=== PATIENT | female | born 1960 | race Caucasian/White ===

== ENCOUNTER 2022-11-19 01:14 | Day surgery (SDC) | payer BC, SELFPAY ==
[2022-11-09 17:00] VITALS: BMI 34.0
--- NOTE | 2022-11-09 17:33 | PC.NURSE ---
Report to the Outpatient Waiting Room, entrance under the green pavilion located off [facility], at time 0600 on date 11/19/22. Planned Procedure Time: 0730_. Time changes happen often and if your time is changed the preop area will call you the afternoon before. - You and your visitor will be asked to self-screen and do not enter if you have any COVID symptoms. - Only one visitor is requested with a max of two and NO children visitors are allowed at this time. - The patient visitor may be requested to leave or wait in car when not with patient due to distancing restrictions. - A mask is optional within the hospital at this time. Patients may have clear liquids (water, carbonated beverages, clear teas, apple juice) until 3 hours prior to surgery with a maximum of 20 ounces. - No food from midnight until time of surgery - Infants may have breast milk until 4 hours before surgery, formula 6 hours prior to surgery. - Children will be allowed to drink immediately following surgery. If applicable, please bring a bottle or sippy cup to assist with drinking. Juice, water, soda, and popsicles are readily available. For infants on formula, please bring formula the day of surgery. Pacifiers are allowed. Take the following medications with a SIP of water the morning of surgery: _inhaler, buspirone, duloxetine_ DO NOT STOP ANY OF YOUR OTHER PRESCRIPTION MEDICATIONS PRIOR TO SURGERY ?EXCEPT THE FOLLOWING Medications to discontinue per physician __multivitamin Date to take last dose_11/16/22_ Please no make-up, nail sw[place], hairspray, perfume, deodorant, or body powder the day of surgery. No jewelry (including any body piercings) or valuables the day of surgery, leave them at home. Please take a shower or bath the night before, or the morning of, surgery with an antibacterial soap. Wear comfortable, loose fitting clothing. Children are encouraged to wear pajamas. - Jewelry must be removed prior to entering the operating room. Rings and piercings that are not removed may be cut off. - The hospital will not accept responsibility for valuables. - Please leave all valuables, including medications, at home the day of surgery. If you are going home after surgery, a licensed sprinkler driver must drive you home. - NO public transportation without another adult if you receive anesthesia. - We recommend that an adult stay with you for 24 hours following discharge. - We also recommend that you do not drive, make important decision, drink alcoholic beverages, or take any drugs that were not prescribed by your health care provider for at least 24 hours after your discharge time. For Pediatric surgeries, we recommend two adults accompany the child home. Follow any additional instructions given to you from your surgeon. If you or anyone in your household have experienced Covid symptoms in the past week, please notify your surgeon or the nurse liaison at the phone number below for possible testing. Telephone instructions given to Veronique Mead and asked if any additional questions and then verbalized understanding. Patient advised to call surgeon office or pre surgery nurse liaison [phone] if any additional questions.
--- NOTE | 2022-11-18 09:33 | PM.IMHP ---
H&P: HPI History of Present Illness Date/Time: 11/18/22 09:33 Chief Complaint: Stress incontinence Narrative: 62-year-old with mixed incontinence. Stress incontinence predominant. She is on medications for overactive bladder. She is here today for treatment of stress incontinence Review of Systems Review of Systems: All systems reviewed & are unremarkable except as noted in HPI and below PMFSH Social History Social History Smoking packs per day: 0.5 Smoking cigarettes per day: 10.0 Years smoked: 47 Smoking pack-years: 23.50 Smoking status: Current some day smoker Tobacco type: cigarettes Alcohol intake: never Substance use: never Living arrangements: with family Spiritual care concerns: No Meds Home Medications and Allergies Home Medications Medication Instructions Recorded Confirmed Type atorvastatin 80 mg tablet 80 mg PO DAILY 11/09/22 11/09/22 History buspirone 30 mg tablet 30 mg PO DAILY 11/09/22 11/09/22 History cilostazol 100 mg tablet 100 mg PO DAILY 11/09/22 11/09/22 History docusate sodium 100 mg capsule 100 mg PO DAILY 11/09/22 11/09/22 History duloxetine 60 mg capsule,delayed 60 mg PO DAILY 11/09/22 11/09/22 History release methocarbamol 750 mg tablet 750 mg PO DAILY 11/09/22 11/09/22 History multivit with minerals-iron 18 1 tablet PO DAILY 11/09/22 11/09/22 History mg-folic ac 400 mcg-vit K 25 mcg tablet (Adults Multivitamin) pregabalin 150 mg capsule 150 mg PO DAILY 11/09/22 11/09/22 History umeclidinium 62.5 mcg-vilanterol 62.5 inh inhalation DAILY 11/09/22 11/09/22 History 25 mcg/actuation powdr for inhalation (Anoro Ellipta) Allergies Allergy/AdvReac Type Severity Reaction Status Date / Time Penicillins Allergy Unknown rash Unverified 10/20/14 16:50 NSAIDS (Non-Steroidal AdvReac Severe bleeding Verified 11/09/22 17:22 Anti-Inflamma ulcer Exam Narrative: urethral hypermobility noted Assessment and Plan Assessment and plan (1) [place] (stress urinary incontinence, female): Code(s): N39.3 - Stress incontinence (female) (male) Status: Acute Assessment and Plan: urethral sling. Understands risks of bleeding, infection, lack of efficacy, urinary retention requiring secondary procedure, hip and leg pain, mesh exposure. Agrees to proceed
[2022-11-19] MEDS: LACTATED RINGERS 1,000 ML 30 ML IV CONT ×2 (06:30→08:00)
[2022-11-19 07:07] LABS: Appearance Urine Clear (Clear); Bilirubin Urine Negative (Negative); Blood Urine Trace-lysed (Negative); Color Urine Yellow (Yellow); Glucose Urine UA Negative (Negative); Ketones Urine Negative (Negative); Leukocyte Esterase Ur Negative LEU/UL (Negative); Nitrate Urine Negative (Negative); Protein Urine Negative (Negative); Specific Grav Ur 1.025 (1.001-1.035); Urobilinogen Urine 0.2 mg/dL (<2.0); pH Urine 6.5 (5.0-9.0)
--- NOTE | 2022-11-19 07:12 | WPDHPUPDATE1 ---
History and Physical Update Update Date/Time: 11/19/22 07:12 History and Physical has been reviewed, including an updated exam of the patient. There are NO changes in the patient's condition. Risks, benefits, and alternatives have been discussed and questions answered. Patient agrees to proceed with procedure.
[2022-11-19 07:17] LABS: Squamous Epithelial Cell Urine Few /hpf (Few); WBC Urine 0-3 /hpf
[2022-11-19 07:23] LABS: Add Urine Microscopic? YES
[2022-11-19 07:40] VITALS: BP 143/87; PULSE 101; RESP 14; TEMP 37.3; O2SAT 94
--- NOTE | 2022-11-19 08:17 | P.PNAN_ITS ---
Anes - Eval Final PreProcedure Day of Procedure 11/19/22 08:17 Patient weight: obese Heart: regular rate and rhythm Lungs: clear to auscultation Airway: Mallampati scale class III Neurological: alert and oriented Last oral intake: >/= 8 hours ASA classification: III Emergent: no Anesthetic plan: proceed Anesthesia type and monitoring: general GIVS and standard monitoring Results Review: All pre-operative results and documents have been reviewed as part of the pre- operative evaluation. Informed Consent: The patient's anesthetic plan and its attendant risks and benefits were discussed with the patient/family/POA. Questions were solicited and answers provided to the satisfaction of the patient/family/POA.
[2022-11-19] MEDS: ceFAZolin 2 GM/D5W 50 ML 2 GM/50 ML BAG IVPB (08:20)
[2022-11-19] MEDS: BUPIVACAINE/EPINEPHRINE 0.5% 10 ML VIAL 30 ML INFILTRATE (08:33)
--- NOTE | 2022-11-19 08:49 | W.PM.PROC2 ---
Procedure Note - Detailed Date of Procedure 11/19/22 Pre-op Diagnosis stress incontinence Post-op Diagnosis Same Procedure Performed mid urethral sling cystoscopy Surgeon Bryce Ross MD Anesthesia MAC Indications This is a female with confirm stress urinary incontinence. She desires surgical correction. She understands the risks of bleeding, infection, injury to the urinary tract, vaginal mesh extrusion, urinary tract mesh erosion, obstructive voiding requiring a secondary procedure, hip and leg pain, dyspareunia, inability to improve overactive bladder symptoms. She agrees to proceed. Description of Procedure She was correctly identified. Informed consent obtained. She was brought the operating room. She was given appropriate anesthesia. She was given appropriate perioperative antibiotics. A time-out performed. I marked out the site of the inner thigh incisions. I anesthetized the skin and made those incisions. I anesthetized the anterior vaginal wall over the mid urethra. I made a 1 cm incision. I dissected out laterally taking great care not to injure the refilled vaginal wall. I passed the helical trocars. First on the left. Then on the right. I did this from the thigh incision towards the vaginal incision. The sling was connected to the trocars and brought out through the thigh incision. I tensioned the sling appropriately. I cut and the plastic sheaths. I then closed the incision with 2 0 Vicryl. On cystoscopy there is no tumors or surgical artifact. There was no surgical artifact in the urethra. I cut the excess sling material. Close incisions with glue. She was awakened and transferred to the PACU in stable condition. Implants Urethral sling Estimated Blood Loss 20 Drains No Packing No Pathology None sent Complications No immediate complications Condition Stable Disposition PACU
[2022-11-19 08:55] VITALS: BP 128/77; PULSE 98; RESP 16; O2SAT 98
[2022-11-19 09:25] VITALS: BP 138/89; PULSE 85; RESP 16; O2SAT 98
== END 2022-11-19 09:50 | disposition home or self-care (01) ==
PROVIDERS: PCP Nurse Practitioner Family; Visit Provider Urology
PROC: (CPT 57288; principal; 2022-11-19 07:30)
DX: N39.3 Stress incontinence (female) (male) (principal); E66.9 Obesity, unspecified; Z68.33 Body mass index [BMI] 33.0-33.9, adult; N32.81 Overactive bladder; F17.210 Nicotine dependence, cigarettes, uncomplicated; Z79.51 Long term (current) use of inhaled steroids
CPT/HCPCS: 57288; 81001; C1771; J0690; J2250; J2704; J3010; J7030; J7120

== ENCOUNTER 2025-04-05 00:39 | Day surgery (SDC) | payer BC, SELFPAY ==
[2025-04-02 12:39] VITALS: BMI 33.7
--- NOTE | 2025-04-02 12:49 | PC.NURSE ---
Report to the Outpatient Waiting Room, entrance under the green pavilion located off [facility], at time _1000_ on date _[id number]_. Planned Procedure Time: _1200_.? Time changes happen often and if your time is changed the preop area will call you the afternoon before. - You and your visitor will be asked to self-screen and do not enter if you have any COVID symptoms. Please call surgeon if you need to reschedule. - A mask is optional within the hospital at this time. Patients may have clear liquids (water, carbonated beverages, clear teas, apple juice) until 3 hours prior to surgery with a maximum of 20 ounces. - No food from midnight until time of surgery and no smoking, or chewing tobacco (or any form of nicotine). No chewing gum, candy or mints. Take only the following medications with a SIP of water on the morning of surgery: ___Duloxetine, Buspirone, Pregabalin and Anoro ellipta___ DO NOT STOP ANY OF YOUR OTHER PRESCRIPTION MEDICATIONS PRIOR TO SURGERY EXCEPT THE FOLLOWING Hold all vitamins and supplements for 3 days per anesthesiologist. Medications to discontinue per physician ___Patient per office intructions took last dose of Cilostazol and Aspirin [id number] Date to take last dose____ Please no make-up, nail citizen [place], hairspray, perfume, deodorant, or body powder the day of surgery.? No jewelry (including any body piercings) or valuables the day of surgery, leave them at home.? Please take a shower or bath the night before, or the morning of, surgery with an antibacterial soap.? Wear comfortable, loose fitting clothing.? - Jewelry must be removed prior to entering the operating room.? Rings and piercings that are not removed may be cut off. - The hospital will not accept responsibility for valuables.? - Please leave all valuables, including medications, at home the day of surgery. If you are going home after surgery, a licensed tank driver must drive you home.? - NO public transportation without another adult if you receive anesthesia. - We recommend that an adult stay with you for 24 hours following discharge. - We also recommend that you do not drive, make important decision, drink alcoholic beverages, or take any drugs that were not prescribed by your health care provider for at least 24 hours after your discharge time. Follow any additional instructions given to you from your surgeon. Telephone instructions given to __Terri__and asked if any additional questions and then verbalized understanding. Patient advised to call surgeon office or pre surgery nurse liaison [phone] if any additional questions.
--- NOTE | 2025-04-04 15:26 | WPDANESEPPF ---
Anes - Initial Pre Proc Eval Procedure: Operation Date: 04/05/25 12:00 Proposed Procedures p Neurostimulator Implant Phase Two - Bryce Ross MD Date/Time: 04/04/25 15:26 Surgeon: Bryce Ross MD Pre Op Diagnosis: rajesh becerril Patient Data Age: 64 Gender: F Height: 1.6 m Weight: 86.4 kg Allergies Allergy/AdvReac Type Severity Reaction Status Date / Time Penicillins Allergy Unknown rash Verified 04/05/25 11:08 NSAIDS (Non-Steroidal AdvReac Severe bleeding Verified 04/05/25 11:08 Anti-Inflamma ulcer Home Medications ?Medication ?Instructions ?Recorded ?Confirmed ?Type atorvastatin 80 mg tablet 80 mg PO DAILY 11/09/22 04/05/25 History buspirone 30 mg tablet 30 mg PO DAILY 11/09/22 04/05/25 History cilostazol 100 mg tablet 100 mg PO DAILY 11/09/22 04/02/25 History docusate sodium 100 mg capsule 100 mg PO DAILY 11/09/22 04/02/25 History duloxetine 60 mg capsule,delayed 60 mg PO DAILY 11/09/22 04/05/25 History release multivit with minerals-iron 18 1 tablet PO DAILY 11/09/22 04/05/25 History mg-folic ac 400 mcg-vit K 25 mcg tablet (Adults Multivitamin) pregabalin 150 mg capsule 150 mg PO DAILY 11/09/22 04/05/25 History umeclidinium 62.5 mcg-vilanterol 62.5 inh inhalation DAILY 11/09/22 04/05/25 History 25 mcg/actuation powdr for inhalation (Anoro Ellipta) amitriptyline 10 mg tablet 10 mg PO HS 04/02/25 04/05/25 History aspirin 81 mg tablet 81 mg PO HS 04/02/25 04/02/25 History Patient hx anesthesia problems: none Family hx anesthesia problems: none Results Review: All pre-operative results and documents have been reviewed as part of the pre-operative evaluation. [facility] Past Medical History Medical History Fibromyalgia On home O2 ANITA (obstructive sleep apnea) COPD (chronic obstructive pulmonary disease) Hyperlipidemia Surgical History Surgical History History of tubal ligation Social History Social History Smoking packs per day: 0.5 Smoking cigarettes per day: 10.0 Years smoked: 45 Smoking pack-years: 22.50 Smoking status: Current every day smoker Tobacco type: cigarettes Alcohol intake: never Substance use: never Living arrangements: with family Gender identity (if verbalized by the patient): Female Sexual Orientation (if Verbalized by the Patient): Straight or Heterosexual Spiritual care concerns: No Anes - Eval Final PreProcedure Day of Procedure 04/04/25 15:26 Patient weight: obese Heart: regular rate and rhythm Lungs: clear to auscultation Airway: Mallampati scale class II Neurological: alert and oriented Last oral intake: >/= 8 hours ASA classification: IV Emergent: no Anesthetic plan: proceed Anesthesia type and monitoring: general GIVS and standard monitoring Results Review: All pre-operative results and documents have been reviewed as part of the pre-operative evaluation. Informed Consent: The patient's anesthetic plan and its attendant risks and benefits were discussed with the patient/family/POA. Questions were solicited and answers provided to the satisfaction of the patient/family/POA.
--- NOTE | ~2025-04-05 | XR_ITS ---
INTRAOPERATIVE FLUOROSCOPY: CLINICAL HISTORY: 64 years old Female; NEUROSTIMULATOR IMPLANT PHASE TWO PROCEDURE COMMENTS: Limited intraoperative fluoroscopy of the lumbar spine was performed. CUMULATIVE DOSE: 34.8 mGy FLUOROSCOPY TIME: 35.7 seconds FINDINGS/IMPRESSION: Please refer to operative note for further details. Reviewed, dictated and finalized at location A.
--- NOTE | 2025-04-05 04:55 | PM.IMHP ---
H&P: HPI History of Present Illness Date/Time: 04/05/25 04:55 Chief Complaint: UUI Narrative: successful trial of SNS Review of Systems Review of Systems: All systems reviewed & are unremarkable except as noted in HPI and below PMFSH Past Medical History Medical History Fibromyalgia On home O2 ANITA (obstructive sleep apnea) COPD (chronic obstructive pulmonary disease) Hyperlipidemia Surgical History Surgical History History of tubal ligation Social History Social History Smoking packs per day: 0.5 Smoking cigarettes per day: 10.0 Years smoked: 45 Smoking pack-years: 22.50 Smoking status: Current every day smoker Tobacco type: cigarettes Alcohol intake: never Substance use: never Living arrangements: with family Gender identity (if verbalized by the patient): Female Sexual Orientation (if Verbalized by the Patient): Straight or Heterosexual Spiritual care concerns: No Meds Home Medications and Allergies Home Medications ?Medication ?Instructions ?Recorded ?Confirmed ?Type atorvastatin 80 mg tablet 80 mg PO DAILY 11/09/22 04/02/25 History buspirone 30 mg tablet 30 mg PO DAILY 11/09/22 04/02/25 History cilostazol 100 mg tablet 100 mg PO DAILY 11/09/22 04/02/25 History docusate sodium 100 mg capsule 100 mg PO DAILY 11/09/22 04/02/25 History duloxetine 60 mg capsule,delayed 60 mg PO DAILY 11/09/22 04/02/25 History release multivit with minerals-iron 18 1 tablet PO DAILY 11/09/22 04/02/25 History mg-folic ac 400 mcg-vit K 25 mcg tablet (Adults Multivitamin) pregabalin 150 mg capsule 150 mg PO DAILY 11/09/22 04/02/25 History umeclidinium 62.5 mcg-vilanterol 62.5 inh inhalation DAILY 11/09/22 04/02/25 History 25 mcg/actuation powdr for inhalation (Anoro Ellipta) amitriptyline 10 mg tablet 10 mg PO HS 04/02/25 04/02/25 History aspirin 81 mg tablet 81 mg PO HS 04/02/25 04/02/25 History Allergies Allergy/AdvReac Type Severity Reaction Status Date / Time Penicillins Allergy Unknown rash Verified 04/02/25 12:34 NSAIDS (Non-Steroidal AdvReac Severe bleeding Verified 04/02/25 12:34 Anti-Inflamma ulcer Exam Narrative: NAD A+O x3 Assessment and Plan Assessment and plan (1) Urge incontinence: Code(s): N39.41 - Urge incontinence Status: Acute Assessment and Plan: interstim implant
--- NOTE | 2025-04-05 04:56 | WPDHPUPDATE1 ---
History and Physical Update Update Date/Time: 04/05/25 04:56 History and Physical has been reviewed, including an updated exam of the patient. There are NO changes in the patient's condition. Risks, benefits, and alternatives have been discussed and questions answered. Patient agrees to proceed with procedure.
[2025-04-05] MEDS: LACTATED RINGERS 1,000 ML 30 ML IV CONT (11:00)
[2025-04-05 11:01] VITALS: BP 124/74; PULSE 97; RESP 16; TEMP 37.2; O2SAT 94
[2025-04-05] MEDS: ceFAZolin SODIUM 1 GM VIAL (12:12)
[2025-04-05] MEDS: BUPIVACAINE/EPINEPHRINE 0.5% 50 ML VIAL 30 ML INFILTRATE (12:12)
[2025-04-05] MEDS: ceFAZolin 2 GM/D5W 50 ML 2 GM/50 ML BAG IVPB (12:12)
--- NOTE | 2025-04-05 12:42 | P.OP_ITS ---
Procedure Note - Detailed Date of Procedure 04/05/25 Pre-op Diagnosis urge incont Post-op Diagnosis Same Procedure Performed Implantation of sacral lead 54609 Placement of implantable pulse generator 23987 Complex neurostimulator programming impedance check 50049 Surgeon Bryce Ross MD Anesthesia MAC and Local Indications This is a patient with refractory urge urinary incontinence. They have undergone a successful trial of sacral nerve stimulation. They present today for permanent implantation. They understand the risks of bleeding, infection, decreased efficacy, need for revision and battery changes. They agree to proceed Findings See dictated Description of Procedure They were correctly identified and informed consent was obtained. There brought to the operating room. There placed in the prone position. There given appropriate perioperative antibiotics. A time-out performed. I used fluoroscopy to [place] out my sacral landmarks in the AP and the lateral orientation. I anesthetized the skin. I entered the S3 foramen. I monitored the needle with fluoroscopy. I got appropriate Tal and toe response at a low threshold. I made a skin delphine. I placed a stylet. I placed the lead i ntroducer sheath. I then placed and deployed to my lead. I got appropriate responses again at a low threshold. I marked out the site of the pulse generator. I anesthetized the skin and made that incision. I created a subcutaneous pocket to house the pulse generator. I tunneled the lead towards this pocket. Appropriate connections were made between the lead and the battery. It was placed in the pocket. It was programmed and impedances were checked and found to be normal. I irrigated out all wounds. I ensured hemostasis. I closed the subcutaneous tissues with 2 Vicryl. I closed the skin with 4 0 Vicryl. Glue was applied. He was then awakened and transferred to the PACU in stable condition. Implants Sacral neurostimulator Estimated Blood Loss 5 Drains No Packing No Pathology None sent Complications No immediate complications Condition Stable Disposition PACU
[2025-04-05 12:50] VITALS: BP 125/65; PULSE 100; RESP 14; O2SAT 92
[2025-04-05 13:20] VITALS: BP 126/72; PULSE 95; RESP 20
[2025-04-05 13:50] VITALS: BP 132/79; PULSE 93; RESP 20
[2025-04-05 14:10] VITALS: BP 119/66; PULSE 58; RESP 20
== END 2025-04-05 14:15 | disposition home or self-care (01) ==
PROVIDERS: PCP Nurse Practitioner; Visit Provider Urology
PROC: (CPT 64561; principal; 2025-04-05 12:00)
DX: N39.41 Urge incontinence (principal); E78.5 Hyperlipidemia, unspecified; J44.9 Chronic obstructive pulmonary disease, unspecified; G47.33 Obstructive sleep apnea (adult) (pediatric); M79.7 Fibromyalgia; F17.210 Nicotine dependence, cigarettes, uncomplicated; E66.9 Obesity, unspecified; Z68.33 Body mass index [BMI] 33.0-33.9, adult; Z99.81 Dependence on supplemental oxygen; Z79.51 Long term (current) use of inhaled steroids; Z79.82 Long term (current) use of aspirin; Z98.51 Tubal ligation status
CPT/HCPCS: 64561; 64590; 99199; C1767; C1778; C1787; J0690; J2004; J2250; J3010; J7120